=== PATIENT | female | born 1945 | race African-American/Black ===

== ENCOUNTER → 2016-11-16 | Outpatient (CLI) | payer MEDICARE, BC | END | disposition home or self-care (01) | LOC: PCVCCLINIC 15:00 | PROVIDERS: ATTEND Internal Medicine Cardiovascular Disease | DX: I25.10 Atherosclerotic heart disease of native coronary artery without angina pectoris (principal); E78.00 Pure hypercholesterolemia, unspecified; E11.9 Type 2 diabetes mellitus without complications; I10 Essential (primary) hypertension; I73.9 Peripheral vascular disease, unspecified; I77.9 Disorder of arteries and arterioles, unspecified; R07.89 Other chest pain; R09.89 Other specified symptoms and signs involving the circulatory and respiratory systems; E04.1 Nontoxic single thyroid nodule | CPT/HCPCS: 80061; 93005; G0463 ==

== ENCOUNTER → 2016-11-29 | Outpatient (CLI) | payer MEDICARE, BC | END | disposition home or self-care (01) | LOC: PCVCIMAG 09:10 | PROVIDERS: ATTEND Internal Medicine Cardiovascular Disease | DX: I65.23 Occlusion and stenosis of bilateral carotid arteries (principal); I25.10 Atherosclerotic heart disease of native coronary artery without angina pectoris; R09.89 Other specified symptoms and signs involving the circulatory and respiratory systems; R94.31 Abnormal electrocardiogram [ECG] [EKG]; R07.9 Chest pain, unspecified | CPT/HCPCS: 76536; 93306; 93880 ==

== ENCOUNTER → 2016-12-05 | Outpatient (CLI) | payer MEDICARE, BC ==
[~2016-12-05] MED LIST: REGADENOSON 0.4 MG/5 ML DISP.SYRIN. IV ONE
== END | disposition home or self-care (01) ==
LOC: PCVCIMAG 08:55
PROVIDERS: ATTEND Internal Medicine Cardiovascular Disease
DX: I25.10 Atherosclerotic heart disease of native coronary artery without angina pectoris (principal); I10 Essential (primary) hypertension
CPT/HCPCS: 78452; 93017; A9500; J2785

== ENCOUNTER → 2017-10-17 | Outpatient (CLI) | payer MEDICARE, BC | END | disposition home or self-care (01) | LOC: PCVCCLINIC 15:11 | DX: I25.10 Atherosclerotic heart disease of native coronary artery without angina pectoris (principal); I10 Essential (primary) hypertension; E04.1 Nontoxic single thyroid nodule; E78.00 Pure hypercholesterolemia, unspecified; I77.9 Disorder of arteries and arterioles, unspecified; E11.9 Type 2 diabetes mellitus without complications; R94.31 Abnormal electrocardiogram [ECG] [EKG]; Z79.899 Other long term (current) drug therapy; Z79.82 Long term (current) use of aspirin | CPT/HCPCS: 80061; 93005; G0463 ==

== ENCOUNTER → 2018-07-25 | Outpatient (CLI) | payer MEDICARE, BC ==
--- NOTE | 2018-07-25 14:03 | PCVCIMAG ---
EXAM: ULTRASOUND OF THE THYROID INDICATION: Thyroid nodules. FINDINGS: The right thyroid lobe measures 5.5 x 1.9 x 2.3 cm. The left thyroid lobe measures 5.0 x 1.8 x 2.1 cm. Multiple nodules throughout both thyroid lobes the majority of which are cystic or partially cystic. These are unchanged compared to 2017 study. In the mid lateral right thyroid lobe is a 0.8 x 0.8 x 1.4 cm solid nodule also unchanged is prior study. In the mid to upper left thyroid lobe is a 0.7 x 0.9 x 0.9 cm solid nodule. This is unchanged since prior study. IMPRESSION: Multinodular thyroid goiter as detailed above with a 1.4 cm solid nodule mid lateral right thyroid lobe and a 0.9 cm solid nodule in the mid to upper left thyroid lobe. No definite change compared to November 2016 study. LOC:[id number]
== END | disposition home or self-care (01) ==
LOC: PCVCIMAG 13:11
PROVIDERS: ATTEND Internal Medicine Cardiovascular Disease
DX: E04.1 Nontoxic single thyroid nodule (principal); I25.10 Atherosclerotic heart disease of native coronary artery without angina pectoris; E11.9 Type 2 diabetes mellitus without complications; I73.9 Peripheral vascular disease, unspecified; E78.00 Pure hypercholesterolemia, unspecified; I10 Essential (primary) hypertension; I65.23 Occlusion and stenosis of bilateral carotid arteries; Z79.82 Long term (current) use of aspirin; Z86.39 Personal history of other endocrine, nutritional and metabolic disease
CPT/HCPCS: 76536; 80061; 93005; G0463

== ENCOUNTER → 2018-11-15 | Outpatient (CLI) | payer MEDICARE, BC ==
--- NOTE | 2018-11-15 15:06 | PCVCIMAG ---
APPROVED REPORT Study performed: 11/15/2018 11:26:01 EXAM: Comprehensive 2D, Doppler, and color-flow Echocardiogram Patient Location: Echo lab Status: routine BSA: 1.93 HR: 79 bpmBP: 160/90 mmHg Rhythm: NSR Other Information Study Quality: Good Risk Factors: Cardiac Risk Factors: HTN, Hyperlipidemia, DM, Hyperlipidemia Indications Diabetes CAD Hypertension/HDD 2D Dimensions IVSd: 17.02 (7-11mm)LVOT Diam: 18.02 (18-24mm) LVDd: 40.21 mm PWd: 10.80 (7-11mm)Ascending Ao: 35.12 (22-36mm) LVDs: 36.13 (25-40mm) Left Atrium: 36.46 (27-40mm) Aortic Root: 24.21 mm LV Single Plane 4CH: 61.13 % LV Single Plane 2CH: 51.10 % Biplane EF: 55.7 % Volumes Left Atrial Volume (Systole) Single Plane 4CH: 24.52 mLSingle Plane 2CH: 35.08 mL LA ESV Index: 15.00 mL/m2 Aortic Valve AoV Peak Judah.: 1.66 m/s AO Peak Gr.: 10.98 mmHg Mitral Valve E/A Ratio: 0.6 MV Decel. Time: 318.89 ms MV E Max Judah.: 0.66 m/s MV A Judah.: 1.09 m/s IVRT: 145.33 ms TDI E/Lateral E': 6.60E/Medial E': 16.50 Medial E' Judah.: 0.04 m/s Lateral E' Judah.: 0.10 m/s Pulmonary Valve PV Peak Gr.: 2.16 mmHg Pulmonary Vein P Vein S: 0.59 m/sP Vein A: 0.35 m/s P Vein D: 0.36 m/sP Vein A Dur.: 83.0 msec P Vein S/D Ratio: 1.64 Left Ventricle The left ventricle is normal size. There is normal LV segmental wall motion. Mild concentric left ventricular hypertrophy. Left ventricular systolic function is normal. The left ventricular ejection fraction is within the normal range. LVEF is 60-65%. Grade I - abnormal relaxation pattern. Right Ventricle The right ventricle is normal size. The right ventricular systolic function is normal. Atria The left atrium size is normal. The right atrium size is normal. Aortic Valve The aortic valve is normal in structure. No aortic regurgitation is present. There is no aortic valvular stenosis. Mitral Valve The mitral valve is normal in structure. There is no mitral valve regurgitation noted. No evidence of mitral valve stenosis. Tricuspid Valve The tricuspid valve is normal in structure. There is no tricuspid valve regurgitation noted. Pulmonic Valve The pulmonary valve is normal in structure. Trace pulmonic regurgitation. Great Vessels The aortic root is normal in size. IVC is normal in size and collapses >50% with inspiration. Pericardium There is no pericardial effusion. <Conclusion> The left ventricle is normal size. LVEF is 60-65%. Grade I - abnormal relaxation pattern. The right ventricle is normal size. The left atrium size is normal. The aortic valve is normal in structure. There is no mitral valve regurgitation noted. There is no mitral valve regurgitation noted. There is no tricuspid valve regurgitation noted. The aortic root is normal in size. There is no pericardial effusion.
--- NOTE | 2018-11-20 13:46 | PCVCIMAG ---
APPROVED REPORT Imaging Protocol: Rest Tc-99m/Stress Tc-99m 1 day Study performed: 11/15/2018 13:16:57 Indication: CAD Patient Location: Out-Patient Stress Nurse: Milana Valdivia RN, Jossy Min RN [place] Tech:Letty Meyersemily [facility] Ht: 5 ft 7 in Wt: 179 lbs BSA: 1.93 m2 HR: 85 bpm BP: 195/93 mmHg BMI: 28.0 Rhythm: Sinus Rhythm, T wave Abn Medical History Medical History: HTN, Hyperlipidemia, PVD, Diabetic Noninsulin Medications: Hudson, ASA, Clonodine, Coreg, Dyazide, Zetia, Crestor Allergies: Sulfa Cardiac Risk Factors: Age, FHX of CAD Pretest Chest Pain Characteristics: No chest pain Exercise History: Sedentary Resting Data Rest SPECT myocardial perfusion imaging was performed in supine position 45 minutes following the intravenous injection of 10.4 mCi of Tc-99m Sestamibi. Time of rest injection: 1230 Date: 11/15/2018 Administration Route: IV Administration Site: Left Wrist Pharmacologic Stress Pharmacologic stress test was performed by injecting Regadenoson 0.4 mg IV push over 10-15 seconds immediately followed by the intravenous injection of 34 mCi of Tc-99m Sestamibi. Time of stress injection: 1400 Administration Route: IV Administration Site: Left Wrist Gated Stress SPECT was performed 45 minutes after stress injection. The images were gated to evaluate regional wall motion and calculate left ventricular ejection fraction. Stress Test Details Stress Test: Pharmacologic stress was paired with low level exercise. Reason for pharmacologic stress test: activity intolerance. HRMax Heart Rate (APMHR): 147 bpm Resting HR: 85 bpmTarget HR (85% APMHR): 124 bpm Max HR Achieved: 100 bpm % of APMHR: 68 Recovery HR: 88 bpm BP Resting BP: 195/93 mmHg Max BP: 180/93 mmHg Recovery BP: 174/86 mmHg ECG Resting ECG: Sinus Rhythm, T wave Abn Stress ECG: Sinus Tachycardia, T wave Abn Arrhythmia: VPC's Recovery ECG: Sinus Rhythm, T wave Abn Clinical Reason for Termination: Completed protocol Stress Symptoms: Dyspnea Exercise duration: 0 min 55 sec Symptoms resolved with caffeine. Stress ECG Conclusion ECG: Non-ischemic Study Quality Study: Good Study Data Post stress, the left ventricular ejection was 75%.. SSS: 3 SRS: 2 SDS: 1 TID = 0.90. Perfusion No evidence of stress induced ischemia. 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 Nuclear Conclusion No evidence of stress induced ischemia. 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 Post stress, the left ventricular ejection was 75%. No change since prior study dated November 2016. Interpreted by: Akil Philip MD Electronically Approved: 11/15/2018 19:25:14 <Conclusion> ECG: Non-ischemic
== END | disposition home or self-care (01) ==
LOC: PCVCIMAG 13:00
PROVIDERS: ATTEND Internal Medicine Cardiovascular Disease
DX: I25.10 Atherosclerotic heart disease of native coronary artery without angina pectoris (principal); E11.9 Type 2 diabetes mellitus without complications; I10 Essential (primary) hypertension
CPT/HCPCS: 78452; 93017; 93306; A9500; J2785

== ENCOUNTER → 2019-06-27 | Outpatient (CLI) | payer MEDICARE, BC | END | disposition home or self-care (01) | LOC: PCVCCLINIC 15:02 | PROVIDERS: ATTEND Internal Medicine Cardiovascular Disease | DX: I12.9 Hypertensive chronic kidney disease with stage 1 through stage 4 chronic kidney disease, or unspecified chronic kidney disease (principal); E11.22 Type 2 diabetes mellitus with diabetic chronic kidney disease; N18.3 Chronic kidney disease, stage 3 (moderate); I25.10 Atherosclerotic heart disease of native coronary artery without angina pectoris; E78.00 Pure hypercholesterolemia, unspecified; I73.9 Peripheral vascular disease, unspecified; I65.23 Occlusion and stenosis of bilateral carotid arteries; E07.9 Disorder of thyroid, unspecified; Z88.2 Allergy status to sulfonamides; Z79.899 Other long term (current) drug therapy | CPT/HCPCS: 36415; 80061; 93005; G0463 ==